=== PATIENT | female | born 1940 | race Caucasian/White ===

== ENCOUNTER → 2017-02-03 | Outpatient (CLI) | payer OTHER | LOC: KOH-I 14:33 | DX: R52 Pain, unspecified (principal) | CPT/HCPCS: 71101 ==

== ENCOUNTER 2017-02-19 20:15 | Emergency (ER) | payer OTHER ==
[2017-02-19 22:05] LABS: HEMOGLOBIN 11.3 gm/dl (12.3-15.3); RED BLOOD COUNT 3.81 M/UL (4.00-5.10); WHITE BLOOD COUNT 7.6 K/UL (4.5-11.0)
== END 2017-02-20 02:10 | disposition home or self-care (01) ==
LOC: ER1 20:15
PROVIDERS: Physician Assistant
DX: R07.89 Other chest pain (principal); I12.9 Hypertensive chronic kidney disease with stage 1 through stage 4 chronic kidney disease, or unspecified chronic kidney disease; N18.9 Chronic kidney disease, unspecified; Z88.5 Allergy status to narcotic agent; Z90.49 Acquired absence of other specified parts of digestive tract
CPT/HCPCS: 36415; 71250; 80053; 82550; 82553; 83874; 84484; 85025; 86140; 93005; 99285

== ENCOUNTER 2021-01-21 03:29 | Observation (INO) | payer OTHER ==
[~2021-01-21] VITALS: Ht 160 cm; Wt 77.1 kg
[~2021-01-21 03:29] MED LIST: BENICAR40 MG PO; BROMPHENIR-PSE118 ML PO; ELIQUIS2.5 MG PO; GLIPIZIDE5 MG PO; HYDROCHLOROTHIA25 MG PO; LIPITOR80 MG PO; MOTION RELIEF25 MG PO; NORCO 5-325 TA1 EACH PO; PREVACID30 MG PO; ULORIC 40 MG TA40 MG PO; VITAMIN D21250 MCG PO; ZOLOFT50 MG PO
[2021-01-21 04:20] LABS: HEMOGLOBIN 13.1 gm/dl (12.3-15.3); RED BLOOD COUNT 4.39 M/UL (4.00-5.10); WHITE BLOOD COUNT 10.7 K/UL (4.5-11.0)
[2021-01-21 04:41] LABS: BUN/CREATININE RATIO 20 (0-10)
[2021-01-21] MEDS ORDERED: NORFLEX 100 MG100 MG PO (08:27)
[2021-01-21] MEDS ORDERED: NORVASC2.5 MG PO (08:27)
[2021-01-21] MEDS ORDERED: HYDROXYZINE HCL25 MG PO (08:28)
[2021-01-21] MEDS ORDERED: ACETAMINOPHEN500 MG PO (12:35)
[2021-01-22 03:54] LABS: HEMOGLOBIN 11.9 gm/dl (12.3-15.3); RED BLOOD COUNT 4.01 M/UL (4.00-5.10); WHITE BLOOD COUNT 10.1 K/UL (4.5-11.0)
[2021-01-23 06:28] LABS: HEMOGLOBIN 11.2 gm/dl (12.3-15.3); RED BLOOD COUNT 3.77 M/UL (4.00-5.10); WHITE BLOOD COUNT 9.1 K/UL (4.5-11.0)
[2021-01-24 02:33] LABS: HEMOGLOBIN 10.8 gm/dl (12.3-15.3); RED BLOOD COUNT 3.62 M/UL (4.00-5.10); WHITE BLOOD COUNT 8.2 K/UL (4.5-11.0)
[2021-01-24] MEDS ORDERED: FLORASTOR250 MG PO (09:45)
[2021-01-24] MEDS ORDERED: PROTONIX40 MG PO (09:45)
== END 2021-01-24 15:34 | disposition home or self-care (01) ==
LOC: ER1 03:29 → CDU 05:11 → M/S 05:11
PROVIDERS: Emergency Medicine; ADMIT Internal Medicine
PROC: 4A023N7 Measurement of Cardiac Sampling and Pressure, Left Heart, Percutaneous Approach (ICD-10-PCS; principal; 2021-01-23)
PROC: B2111ZZ Fluoroscopy of Multiple Coronary Arteries using Low Osmolar Contrast (ICD-10-PCS; 2021-01-23)
DX: R07.89 Other chest pain (principal); N17.9 Acute kidney failure, unspecified; I12.9 Hypertensive chronic kidney disease with stage 1 through stage 4 chronic kidney disease, or unspecified chronic kidney disease; E11.22 Type 2 diabetes mellitus with diabetic chronic kidney disease; N18.2 Chronic kidney disease, stage 2 (mild); E86.0 Dehydration; K21.00 Gastro-esophageal reflux disease with esophagitis, without bleeding; R10.13 Epigastric pain; R11.0 Nausea; E78.5 Hyperlipidemia, unspecified; M10.9 Gout, unspecified; M94.0 Chondrocostal junction syndrome [Tietze]; K29.70 Gastritis, unspecified, without bleeding; Z79.899 Other long term (current) drug therapy; Z20.822 Contact with and (suspected) exposure to COVID-19; Z88.5 Allergy status to narcotic agent
CPT/HCPCS: 36415; 71045; 78452; 80048; 80053; 82550; 82553; 82962; 83690; 83735; 83874; 83880; 84100; 84484; 85025; 85027; 85610; 85730; 93005; 93017; 96372; 96374; 96375; 96376; 99152; 99285; A9502; C9113; G0378; J1644; J1650; J1885; J2250; J2405; J2785; J3010; J7030; Q9965; U0002

== ENCOUNTER → 2021-03-20 | Outpatient (CLI) | payer OTHER ==
[~2021-03-20] MED LIST changes: +ACETAMINOPHEN500 MG PO; +FLORASTOR250 MG PO; +HYDROXYZINE HCL25 MG PO; +IBUPROFEN600 MG PO; +NORFLEX 100 MG100 MG PO; +NORVASC2.5 MG PO; +PROTONIX40 MG PO
== END ==
LOC: KOH-I 15:48
DX: M25.562 Pain in left knee (principal)
CPT/HCPCS: 73562

== ENCOUNTER → 2021-04-01 | Outpatient (CLI) | payer OTHER | LOC: KOH-I 09:00 | DX: M25.562 Pain in left knee (principal) | CPT/HCPCS: 73721 ==

== ENCOUNTER 2021-05-13 14:42 | Emergency (ER) | payer OTHER ==
[~2021-05-13 14:42] MED LIST changes: -IBUPROFEN600 MG PO
[2021-05-13] MEDS ORDERED: IBUPROFEN600 MG PO (17:01)
== END 2021-05-13 17:04 | disposition home or self-care (01) ==
LOC: ER1 14:42
DX: M79.604 Pain in right leg (principal); I10 Essential (primary) hypertension; Z90.49 Acquired absence of other specified parts of digestive tract
CPT/HCPCS: 93971; 99283

== ENCOUNTER → 2021-08-22 | Outpatient (CLI) | payer OTHER ==
[~2021-08-22] MED LIST changes: +IBUPROFEN600 MG PO
== END ==
LOC: KOH-I 16:01
DX: M25.551 Pain in right hip (principal); M25.552 Pain in left hip; S72.002A Fracture of unspecified part of neck of left femur, initial encounter for closed fracture
CPT/HCPCS: 73522

== ENCOUNTER → 2021-10-07 | Outpatient (CLI) | payer OTHER ==
[~2021-10-07] MED LIST changes: +BRIMONIDINE 0.2% EYEBOTH; +MECLIZINE HCL25 MG PO; +MOTRIN IB200 MG PO; +PROLIA INJ60 MG/1 ML INH; +TRIAMCINOLONE CREAM TOP
== END ==
LOC: OPSV2 11:30
PROVIDERS: Anesthesiology
DX: Z01.818 Encounter for other preprocedural examination (principal)
CPT/HCPCS: 80048; 93005

== ENCOUNTER → 2021-10-16 | Day surgery (SDC) | payer OTHER ==
[~2021-10-16] VITALS: Ht 160 cm; Wt 78.9 kg
[~2021-10-16] MED LIST changes: -BRIMONIDINE 0.2% EYEBOTH; +BRIMONIDINE TAR15 M1 OU; +HYDROCODON-ACE1 EAC4 PO; +TRIAMCINOLONE A15 GM TOP; -TRIAMCINOLONE CREAM TOP
== END | disposition home or self-care (01) ==
LOC: OR 05:24
DX: T84.84XA Pain due to internal orthopedic prosthetic devices, implants and grafts, initial encounter (principal); T84.031A Mechanical loosening of internal left hip prosthetic joint, initial encounter; G89.18 Other acute postprocedural pain; M70.61 Trochanteric bursitis, right hip; I10 Essential (primary) hypertension; K21.9 Gastro-esophageal reflux disease without esophagitis; E78.5 Hyperlipidemia, unspecified; E55.9 Vitamin D deficiency, unspecified; M19.90 Unspecified osteoarthritis, unspecified site; F41.9 Anxiety disorder, unspecified; Z90.49 Acquired absence of other specified parts of digestive tract; Z88.5 Allergy status to narcotic agent; Z88.8 Allergy status to other drugs, medicaments and biological substances; Z20.822 Contact with and (suspected) exposure to COVID-19
CPT/HCPCS: 73552; 76000; J0690; J1100; J2405; J2704; J3010; J7120

== ENCOUNTER 2021-10-17 17:12 | Inpatient (IN) | payer OTHER ==
[~2021-10-17] VITALS: Ht 160 cm; Wt 78.9 kg
[2021-10-17 18:45] LABS: HEMOGLOBIN 10.6 gm/dl (12.3-15.3); RED BLOOD COUNT 3.54 M/UL (4.00-5.10); WHITE BLOOD COUNT 8.3 K/UL (4.5-11.0)
--- NOTE | 2021-10-18 06:12 | NUR ---
patient to be npo since 0000 on 10/18 for possible procedure with ortho. patient only had meds and a few sips of water to take meds. orders placed for diet by provider.
[2021-10-18 06:17] LABS: HEMOGLOBIN 10.5 gm/dl (12.3-15.3); RED BLOOD COUNT 3.49 M/UL (4.00-5.10)
[2021-10-19 07:49] LABS: HEMOGLOBIN 8.6 gm/dl (12.3-15.3); WHITE BLOOD COUNT 6.6 K/UL (4.5-11.0)
[2021-10-19 07:50] LABS: RED BLOOD COUNT 2.99 M/UL (4.00-5.10)
[2021-10-20 07:37] LABS: HEMOGLOBIN 8.3 gm/dl (12.3-15.3); RED BLOOD COUNT 2.85 M/UL (4.00-5.10)
[2021-10-20 07:50] LABS: WHITE BLOOD COUNT 8.6 K/UL (4.5-11.0)
[2021-10-21 07:02] LABS: RED BLOOD COUNT 2.85 M/UL (4.00-5.10)
[2021-10-22 04:56] LABS: HEMOGLOBIN 8.9 gm/dl (12.3-15.3); RED BLOOD COUNT 2.95 M/UL (4.00-5.10); WHITE BLOOD COUNT 7.5 K/UL (4.5-11.0)
[2021-10-22] MEDS ORDERED: ACETAMINOPHEN500 MG PO (11:55)
[2021-10-22] MEDS ORDERED: HYDROCODON-ACE1 EAC4 PO (11:55)
[2021-10-22] MEDS ORDERED: ENOXAPARIN40 MG/0.4 SC (11:55)
[2021-10-22] MEDS ORDERED: GABAPENTIN300 MG PO (11:55)
== END 2021-10-22 13:50 | DRG 481 ==
LOC: ER1 17:12 → M/S 19:09 → CDU 19:09 → M/S 20:30
PROVIDERS: Emergency Medicine; Internal Medicine Infectious Disease; Orthopaedic Surgery; Physician Assistant; Physician Assistant Medical; ADMIT Internal Medicine
PROC: 0QS604Z Reposition Right Upper Femur with Internal Fixation Device, Open Approach (ICD-10-PCS; principal; 2021-10-18 10:52)
DX: M80.051A Age-related osteoporosis with current pathological fracture, right femur, initial encounter for fracture (principal); D62 Acute posthemorrhagic anemia; Z20.822 Contact with and (suspected) exposure to COVID-19; I12.9 Hypertensive chronic kidney disease with stage 1 through stage 4 chronic kidney disease, or unspecified chronic kidney disease; E11.22 Type 2 diabetes mellitus with diabetic chronic kidney disease; N18.30 Chronic kidney disease, stage 3 unspecified; K21.9 Gastro-esophageal reflux disease without esophagitis; K44.9 Diaphragmatic hernia without obstruction or gangrene; F41.9 Anxiety disorder, unspecified; F32.A Depression, unspecified; E78.5 Hyperlipidemia, unspecified; F41.1 Generalized anxiety disorder; E78.00 Pure hypercholesterolemia, unspecified; E11.65 Type 2 diabetes mellitus with hyperglycemia; E87.5 Hyperkalemia; M10.9 Gout, unspecified; Z87.81 Personal history of (healed) traumatic fracture; Z90.49 Acquired absence of other specified parts of digestive tract; Z82.49 Family history of ischemic heart disease and other diseases of the circulatory system; Z79.4 Long term (current) use of insulin; Z86.73 Personal history of transient ischemic attack (TIA), and cerebral infarction without residual deficits
CPT/HCPCS: 36415; 51702; 73502; 73552; 76000; 80048; 80053; 81001; 82962; 83036; 83735; 85025; 85027; 85610; 85730; 86850; 86900; 86901; 87086; 96374; 96375; 97110-GP-CQ; 97116; 97116-GP-CQ; 97161; 97165; 97530-GP-CQ; 97535; 99285; C1713; J0690; J1100; J1170; J1644; J1650; J2001; J2250; J2270; J2370; J2405; J2704; J2710; J2795; J3010; J7030; J7120; Q0177; U0002; U0003

== ENCOUNTER 2021-12-30 23:22 | Emergency (ER) | payer OTHER ==
[~2021-12-30 23:22] MED LIST changes: +ENOXAPARIN40 MG/0.4 SC; +GABAPENTIN300 MG PO
[2021-12-31 00:56] LABS: HEMOGLOBIN 11.2 gm/dl (12.3-15.3); RED BLOOD COUNT 3.76 M/UL (4.00-5.10); WHITE BLOOD COUNT 9.4 K/UL (4.5-11.0)
[2021-12-31 01:26] LABS: BUN/CREATININE RATIO 12 (0-10)
== END 2021-12-31 05:24 | disposition home or self-care (01) ==
LOC: ER1 23:22
PROVIDERS: Physician Assistant
DX: R00.2 Palpitations (principal); F41.9 Anxiety disorder, unspecified; R14.3 Flatulence; Z90.49 Acquired absence of other specified parts of digestive tract
CPT/HCPCS: 71045; 80053; 82550; 82553; 83605; 83690; 84484; 85025; 93005; 99285

== ENCOUNTER → 2022-02-27 | Outpatient (CLI) | payer OTHER | LOC: KOH-I 16:01 | DX: M25.552 Pain in left hip (principal); M79.622 Pain in left upper arm; M54.50 Low back pain, unspecified; M54.9 Dorsalgia, unspecified; M54.2 Cervicalgia; M19.012 Primary osteoarthritis, left shoulder; M85.822 Other specified disorders of bone density and structure, left upper arm; M47.812 Spondylosis without myelopathy or radiculopathy, cervical region; M47.816 Spondylosis without myelopathy or radiculopathy, lumbar region; R93.7 Abnormal findings on diagnostic imaging of other parts of musculoskeletal system; S72.92XD Unspecified fracture of left femur, subsequent encounter for closed fracture with routine healing; X58.XXXD Exposure to other specified factors, subsequent encounter | CPT/HCPCS: 72040; 72070; 72100; 73060; 73502 ==